=== PATIENT | female | born 1935 | race Caucasian/White ===

== ENCOUNTER 2018-08-01 19:54 | Emergency (ER) | payer OTHER ==
[2018-08-01] MEDS: LIDOCAINE 1% (MDV) 20 ML INJ SC (20:42)
== END 2018-08-01 22:01 | disposition home or self-care (01) ==
LOC: E/R 19:54
DX: S06.0X0A Concussion without loss of consciousness, initial encounter (principal); S01.511A Laceration without foreign body of lip, initial encounter; S51.801A Unspecified open wound of right forearm, initial encounter; I10 Essential (primary) hypertension; S60.222A Contusion of left hand, initial encounter; V43.52XA Car driver injured in collision with other type car in traffic accident, initial encounter
CPT/HCPCS: 12013; 70450; 72125; 99284-25